=== PATIENT | male | born 1985 | race Caucasian/White ===

== ENCOUNTER 2016-11-04 21:26 | Emergency (ER) | payer OTHER ==
[2016-11-04 22:04] LABS: RAPID STREP SCREEN REAGENT QC YELLOW (YELLOW)
[2016-11-04] MEDS ORDERED: DEXAMETHASONE 10 MG/ML VIAL PO STA (22:42)
[2016-11-04] MEDS ORDERED: AZITHROMYCIN 250 MG TABLET PO STA (22:42)
[2016-11-04] MEDS ORDERED: AZITHROMYCIN 250 MG TABLET PO ONE (22:43)
[2016-11-04] MEDS ORDERED: DEXAMETHASONE 10 MG/ML VIAL ONE (22:43)
[2016-11-04] MEDS ORDERED: CHERRY SYRUP 10 ML UDC PO ONE (22:43)
--- NOTE | 2016-11-04 22:44 | ED Physician Documentation ---
PD HPI HEENT - Stated complaint Stated Complaint: SORE THROAT - Chief complaint Chief Complaint: General - History obtained from History obtained from: Patient, Friend - History of Present Illness Timing - onset: How many days ago (2) Timing - duration: Days (2) Timing - details: Gradual onset, Still present Location: Throat Improves: Medication Worsens: Swalllowing Associated symptoms: Congestion, Swollen nodes Similar symptoms before: Diagnosis (strep throat) Recently seen: Not recently seen - Additional information Additional information: 31-year-old previously healthy active [employer] male has developed acute sore throat fever and body aches over the past 2 days. He reports that he was in [place] and has come over on a long plane flight did not get much sleep in the past 2 days. Review of Systems Constitutional: reports: Fever, Chills, Myalgias, Fatigue, Sweats Ears: denies: Ear pain Nose: reports: Rhinorrhea / runny nose, Congestion Throat: reports: Sore throat Cardiac: denies: Chest pain / pressure, Palpitations Respiratory: denies: Dyspnea, Cough GI: denies: Abdominal Pain, Nausea, Vomiting : denies: Dysuria PD PAST MEDICAL HISTORY - Past Medical History Past Medical History: No Cardiovascular: None Respiratory: None Neuro: None Endocrine/Autoimmune: None GI: None : None HEENT: None Psych: None Musculoskeletal: None Derm: None - Past Surgical History Past Surgical History: No - Present Medications Home Medications: Ambulatory Orders Medication Instructions Recorded Confirmed Azithromycin [Zithromax] 250 mg PO DAILY #4 tablet 11/04/16 - Allergies Allergies/Adverse Reactions: Allergies Allergy/AdvReac Type Severity Reaction Status Date / Time No Known Drug Allergies Allergy Verified 11/04/16 21:42 - Social History Does the pt smoke?: No Smoking Status: Never smoker Does the pt drink ETOH?: No Does the pt have substance abuse?: No - Immunizations Immunizations are current?: Yes - POLST Patient has POLST: No PD ED PE NORMAL - Vitals Vital signs reviewed: Yes (Hypertensive) - General General: Well developed/nourished, Other (The patient does appear flushed.) - HEENT HEENT: Atraumatic, PERRL, EOMI, Moist mucous membranes, Other (Both TMs are inflamed with flattening of the umbo the pharynx is with 2+ tonsils with marked exudate more so on the left than the right there is a membrane.) - Neck Neck: Supple, no meningeal sign, Other (Tender submandibular adenopathy) - Cardiac Cardiac: RRR, No murmur - Respiratory Respiratory: No respiratory distress, Clear bilaterally - Abdomen Abdomen: Soft, Non tender - Back Back: No CVA TTP, No spinal TTP - Derm Derm: Normal color, Warm and dry, No rash - Extremities Extremities: Normal ROM s pain, No edema - Neuro Neuro: No motor deficit, No sensory deficit - Psych Psych: Normal mood, Normal affect Results - Vitals Vitals: Vital Signs - 24 hr 11/04/16 11/04/16 21:38 22:58 Temperature 37.3 C 101.0 C H Heart Rate 100 103 H Respiratory 17 18 Rate Blood Pressure 147/86 H 140/74 H O2 Saturation 100 100 Oxygen O2 Source Room air - Labs Labs: Laboratory Tests 11/04/16 21:45 Group A Strep Rapid Negative PD MEDICAL DECISION MAKING - ED course Complexity details: reviewed results, considered differential, d/w patient ED course: 31-year-old previously healthy active [employer] with exhaustion secondary to travel and acute tonsillitis with exudate also has bilateral otitis. He has had fever today his rapid strep is negative here in the emergency department he is administered dexamethasone 10 mg and azithromycin 500 mg as well as Tylenol 1000 mg. Departure - Departure Disposition: 01 Home, Self Care Clinical Impression: Tonsillitis with exudate Otitis media Qualifiers: Otitis media type: suppurative Laterality: bilateral Chronicity: acute Recurrence: not specified as recurrent Spontaneous tympanic membrane rupture: without spontaneous rupture Qualified Code(s): H66.003 - Acute suppurative otitis media without spontaneous rupture of ear drum, bilateral Condition: Stable Instructions: ED Otitis Media Acute Adult, ED Tonsillitis Follow-Up: [facility] [Provider Group] Prescriptions: Azithromycin [Zithromax] 250 mg PO DAILY #4 tablet
[2016-11-04] MEDS ORDERED: ACETAMINOPHEN 500 MG TABLET PO STA (22:47)
[2016-11-04] MEDS ORDERED: ACETAMINOPHEN 500 MG TABLET PO ONE (22:54)
[2016-11-04 22:58] VITALS: BP 140/74
== END 2016-11-04 23:16 | disposition home or self-care (01) ==
LOC: ED 21:26
DX: J03.90 Acute tonsillitis, unspecified (principal); H66.003 Acute suppurative otitis media without spontaneous rupture of ear drum, bilateral
CPT/HCPCS: 87070; 87430; 99283; A9270